=== PATIENT | male | born 1955 | race Caucasian/White ===

== ENCOUNTER → 2025-05-21 15:04 | Outpatient (REF) | payer MEDICARE, OTHER, SELFPAY | LOC: DHVS 15:04 | PROVIDERS: ATTENDING PHYSICIAN Internal Medicine Cardiovascular Disease; FAMILY PHYSICIAN Internal Medicine | DX: R09.89 Other specified symptoms and signs involving the circulatory and respiratory systems (principal) | CPT/HCPCS: 76770 ==